=== PATIENT | male | born 1940 | race Caucasian/White ===

== ENCOUNTER 2016-06-21 16:45 | Emergency (ER) | payer MEDICARE, OTHER ==
[~2016-06-21 16:45] MED LIST: ASA5GR PO; ASAB PO; BENICAR20 PO; BENICAR5 PO; CO Q-10200 MG PO; COQ-1010 MG PO; COQ-10200 MG PO; COQ10100 MG OR; CORDARONE PO; CRESTOR10 PO; CRESTOR20 MG PO; CYANO1000T PO; ELIQUIS 5 MG TAB5 MG PO; FLEX PO; IMDUR120 PO; IMDUR30 PO; LOP25 PO; LOP50 PO; LORTAB 5 PO; LOVAZA1 GM PO; NITROSTAT0.4 MG SL; NORV5 PO; PEP20 PO; PROMEGA PO; PROTONIX PO; PROTONIX20 MG PO; ULTRAM50 PO; VITAMIN B PO; VITAMIN B-121000 MC1 SL; XARELTO20 MG PO; Z100 PO; [UNRECOGNIZED DRUG - OTHER]; [UNRECOGNIZED DRUG - OTHER]
[2016-06-21 17:25] LABS: BASOPHILS 0.2 %; BASOPHILS ABSOLUTE 0.01 10/3/uL (0.0-0.16); EOSINOPHILS ABSOLUTE 0.05 10/3/uL (0.0-0.53); ER CBC TAT 0 Hrs 05 Mins; HEMOGLOBIN 15.1 g/dL (13.6-17.8); IMMATURE GRANULOCYTES 0.2 %; IMMATURE GRANULOCYTES ABSOLUTE 0.01 10/3/uL (0.0-0.11); LYMPHOCYTES 29.6 %; LYMPHOCYTES ABSOLUTE 1.49 10/3/uL (0.67-4.30); MEAN CORPUS HGB CONC 33.7 g/dL (32.0-36.0); MEAN CORPUSCULAR HEMOGLOB 32.3 pg (26.0-34.0); MEAN CORPUSCULAR VOLUME 95.7 fL (80-100); MEAN PLATELET VOLUME 9.7 fL (9.2-13.0); MONOCYTES 7.7 %; MONOCYTES ABSOLUTE 0.39 10/3/uL (0.21-1.20); NEUTROPHILS 61.3 %; NEUTROPHILS ABSOLUTE 3.09 10/3/uL (2.02-8.40); PLATELET COUNT 115 10/3/uL (150-400); RBC DISTRIBUTION WIDTH 14.4 % (12.0-16.0); RED CELL COUNT 4.68 10/6/uL (4.7-6.1)
[2016-06-21 17:27] LABS: HEMATOCRIT 44.8 % (40.0-51.0); MANUAL DIFF NO %
[2016-06-21 17:47] LABS: A/G RATIO 0.8 (0.7-1.9); ALBUMIN 3.2 G/DL (3.5-5.0); ALKALINE PHOSPHATASE 83 U/L (45-117); CALCIUM, SERUM 7.9 MG/DL (8.5-10.4); CHLORIDE, SERUM 104 MMOL/L (96-112); CO2 (CARBON DIOXIDE) 27 MMOL/L (24-34); GLOBULIN 3.9 G/DL (2.5-4.1); POTASSIUM, SERUM 4.8 MMOL/L (3.5-5.3); SGOT(AST) 62 U/L (5-40); SGPT(ALT) 35 U/L (5-65); SODIUM, SERUM 139 MMOL/L (135-148); TOTAL BILIRUBIN 0.4 MG/DL (0-1.2); TOTAL PROTEIN 7.1 G/DL (6.0-8.5)
[2016-06-21 17:48] LABS: BUN (BLOOD UREA NITROGEN) 40 MG/DL (6-23); GFR AFRICAN AMERICAN 39 ML/MIN (>=60); GFR NON AFRICAN AMERICAN 33 ML/MIN (>=60); GLUCOSE, SERUM 171 MG/DL (60-99)
[2016-07-11] MEDS ORDERED: SUCR PO (10:56)
[2016-07-11] MEDS ORDERED: ZYRTEC ALLGY10 MG PO (10:57)
[2016-07-11] MEDS ORDERED: FLONASE NAS (10:58)
[2016-10-20] MEDS ORDERED: EZFE 200200 MG PO (20:39)
[2016-10-20] MEDS ORDERED: VITC500 PO (20:39)
[2016-10-20] MEDS ORDERED: PROTONIX PO (20:40)
[2016-10-20] MEDS ORDERED: HALF81 PO (20:40)
[2016-10-20] MEDS ORDERED: CORDARONE PO (20:41)
[2016-10-20] MEDS ORDERED: ZYRTEC ALLGY10 MG PO (20:41)
[2016-10-20] MEDS ORDERED: VITAMIN D31000 UNIT PO (20:42)
[2016-10-20] MEDS ORDERED: CRESTOR10 PO (20:42)
[2016-10-20] MEDS ORDERED: ZOFRAN4 PO (20:42)
[2016-10-20] MEDS ORDERED: L20 PO (20:42)
[2016-10-20] MEDS ORDERED: COUMADIN4 MG PO (20:43)
[2016-10-26] MEDS ORDERED: CIP5 PO (09:01)
[2016-11-19] MEDS ORDERED: CIP5 PO (16:15)
== END 2016-06-21 22:01 | disposition home or self-care (01) ==
LOC: ER 16:45
PROVIDERS: Emergency Medicine
DX: J40 Bronchitis, not specified as acute or chronic (principal); I12.9 Hypertensive chronic kidney disease with stage 1 through stage 4 chronic kidney disease, or unspecified chronic kidney disease; N18.9 Chronic kidney disease, unspecified; E11.9 Type 2 diabetes mellitus without complications; I48.91 Unspecified atrial fibrillation; Z98.61 Coronary angioplasty status; Z79.899 Other long term (current) drug therapy; Z79.82 Long term (current) use of aspirin
CPT/HCPCS: 71020; 80053; 85025; 87040; 93005; 94640; 96372; 99285; A9270; J2930

== ENCOUNTER 2016-07-27 06:57 | Inpatient (IN) | payer MEDICARE, OTHER ==
[2016-07-17 10:01] LABS: BASOPHILS 0.3 %; BASOPHILS ABSOLUTE 0.01 10/3/uL (0.0-0.16); EOSINOPHILS 6.5 %; EOSINOPHILS ABSOLUTE 0.19 10/3/uL (0.0-0.53); HEMOGLOBIN 13.4 g/dL (13.6-17.8); IMMATURE GRANULOCYTES 0.3 %; IMMATURE GRANULOCYTES ABSOLUTE 0.01 10/3/uL (0.0-0.11); LYMPHOCYTES 38.7 %; LYMPHOCYTES ABSOLUTE 1.13 10/3/uL (0.67-4.30); MANUAL DIFF NO %; MEAN CORPUS HGB CONC 34.4 g/dL (32.0-36.0); MEAN CORPUSCULAR HEMOGLOB 32.4 pg (26.0-34.0); MEAN CORPUSCULAR VOLUME 94.2 fL (80-100); MEAN PLATELET VOLUME 9.6 fL (9.2-13.0); MONOCYTES 5.8 %; MONOCYTES ABSOLUTE 0.17 10/3/uL (0.21-1.20); NEUTROPHILS 48.4 %; NEUTROPHILS ABSOLUTE 1.41 10/3/uL (2.02-8.40); PLATELET COUNT 110 10/3/uL (150-400); RBC DISTRIBUTION WIDTH 14.3 % (12.0-16.0); RED CELL COUNT 4.14 10/6/uL (4.7-6.1); WHITE BLOOD CELLS 2.9 10/3/uL (4.5-10.5)
[2016-07-17 10:06] LABS: INTERNATIONAL NORMAL RATI 1.4 UNITS (-); PROTIME (NOT ORD) 16.6 SEC (12.0-14.5)
[2016-07-17 10:11] LABS: ASCORBIC ACID (UR NOT ORDER) NEG (NEG); BILIRUBIN, URINE NEGATIVE (NEG); KETONE, URINE NEGATIVE (NEG); LEUKOCYTE ESTERASE(NOT OR NEG (NEG); WBC (NOT ORDERED) (RFLEX) < 1 (0-5)
[2016-07-17 10:26] LABS: % IRON SAT 31 % (20-50); A/G RATIO 1.2 (0.7-1.9); ALKALINE PHOSPHATASE 79 U/L (45-117); CALCIUM, SERUM 7.7 MG/DL (8.5-10.4); CHLORIDE, SERUM 109 MMOL/L (96-112); CO2 (CARBON DIOXIDE) 25 MMOL/L (24-34); GLUCOSE, SERUM 195 MG/DL (60-99); IRON BINDING CAPACITY 258 MCG/DL (250-450); IRON, SERUM 81 MCG/DL (35-150); POTASSIUM, SERUM 4.4 MMOL/L (3.5-5.3); SGOT(AST) 17 U/L (5-40); SGPT(ALT) 17 U/L (5-65); SODIUM, SERUM 143 MMOL/L (135-148); TOTAL BILIRUBIN 0.6 MG/DL (0-1.2)
[2016-07-17 10:27] LABS: BUN (BLOOD UREA NITROGEN) 20 MG/DL (6-23); GFR AFRICAN AMERICAN 61 ML/MIN (>=60); GFR NON AFRICAN AMERICAN 53 ML/MIN (>=60); GLOBULIN 2.6 G/DL (2.5-4.1); TOTAL PROTEIN 5.6 G/DL (6.0-8.5)
--- NOTE | ~2016-07-27 | CN ---
Consultation Report [place] [id number] [facility] [place]. [address] NAME: GUADALUPE GARCIA : 36 STATUS : ADM IN [facility]#: [id number] AGE: 75 ADM/REG DATE : 07/27/16 MR#: [id number] REPORT SERV DATE: 08/03/16 DICTATED BY: PETERSON MAJANO DATE: 08/03/16 REPORT STATUS : Draft TRANSCRIBED BY: MODL DATE: 08/03/16 ELECTROPHYSIOLOGY CONSULTATION DATE OF CONSULTATION: INDICATIONS: Sinus node dysfunction, episodes of ventricular asystole, sinus bradycardia, sinus pauses. HISTORY OF PRESENT ILLNESS: Guadalupe Garcia is a 75-year-old man, history of coronary artery disease, previous bypass grafting, previous PCI with persistent atrial fibrillation and aortic valve disease. He underwent CAB, AVR, and maze. Last weekend, he had episodes of ventricular asystole. Eventually, sinus rhythm returned and pacing wires were removed. The patient then last night had multiple episodes of bradycardia, sinus pauses, and then pauses during atrial fibrillation. He had some weak spells during this episode that occurred around midnight. Other episodes occurred around 04:00 a.m. The patient otherwise without focal complaints at the present time. PAST MEDICAL HISTORY: Coronary artery disease, aortic regurgitation, persistent atrial fibrillation, atrial flutter, nonsustained VT, ischemic cardiomyopathy, chronic kidney disease, ABHAY, hypertension, obesity. PRESENT MEDICATIONS: Vitamin C, aspirin, Lipitor, Coreg, iron, Lasix, Levemir. ALLERGIES: NONE KNOWN. SOCIAL HISTORY: No alcohol, never smoker. FAMILY HISTORY: Reviewed. No significant coronary artery disease in family. REVIEW OF SYSTEMS: As per the HPI. Otherwise, all review of systems negative. PHYSICAL EXAMINATION: VITAL SIGNS: Blood pressure 130/59, pulse is 58, respiratory rate is 18. GENERAL: Appears stated age, no distress. EYES: Sclerae anicteric, no arcus senilis. MOUTH: Oral mucosa moist, lips acyanotic. NECK: Jugular venous pressure normal, no carotid bruits. LUNGS: Clear to auscultation bilaterally, normal inspiratory effort. Diminished breath sounds bilateral bases. CARDIAC: Regular rate and irregular rhythm, no murmurs, gallops or rubs. ABDOMEN: Soft, nondistended, nontender. EXTREMITIES: No edema. Consultation Report [place] [id number] [facility] [place]. [address] NAME: GUADALUPE GARCIA : 38 STATUS : ADM IN PAT#: [id number] AGE: 75 ADM/REG DATE : 07/27/16 MR#: [id number] REPORT SERV DATE: 08/03/16 DICTATED BY: PETERSON MAJANO DATE: 08/03/16 REPORT STATUS : Draft TRANSCRIBED BY: MODL DATE: 08/03/16 SKIN: Warm and dry. NEURO/PSYCH: Alert and oriented, nonfocal, mood appropriate. DATA: Laboratories from yesterday, platelets are 81, hemoglobin 7.1, creatinine 1.36, potassium 3.9. Telemetry is atrial fibrillation with pauses up to 4 seconds, telemetry strips demonstrate significant sinus bradycardia with heart rates down to the 40s, other strips demonstrate episodes of asystole from last weekend when the pacer was inhibited. IMPRESSION: 1. Sick sinus syndrome with sinus pauses last night, sinus bradycardia as well, and previous week in asystole. 2. Coronary artery disease, previous bypass grafting this admission. 3. Status post AVR. 4. Chronic kidney disease with acute kidney injury. 5. Anemia. 6. Thrombocytopenia. 7. Atrial fibrillation, status post maze. RECOMMENDATIONS: We will plan to proceed with implantation of a dual-chamber pacemaker. The patient did eat at 0830 hours this morning. We will await the requisite 8 hours and proceed. I discussed with the patient and , rationale logistics and risk. Risks include but not limited to bleeding, infection, vascular complications, failure to place lead, lead dislodgement, pneumothorax. All questions were answered. MISTY/ANNA Peterson Majano M.D. / [id number] CC: Javier Yang M.D. Mateus Prieto M.D.
--- NOTE | ~2016-07-27 | CN ---
Consultation Report [facility] [address] [place]. [address] NAME: GUADALUPE GARCIA : 36 STATUS : ADM IN PAT#: [id number] AGE: 75 ADM/REG DATE : 07/27/16 MR#: [id number] REPORT SERV DATE: 07/30/16 DICTATED BY: SHAHZAD OLIVIER DATE: 07/28/16 REPORT STATUS : Draft TRANSCRIBED BY: MODL DATE: 07/28/16 NEPHROLOGY CONSULT DATE OF CONSULTATION: 07/28/2016 REASON FOR CONSULT: Chronic kidney disease with acute kidney injury. HISTORY OF PRESENT ILLNESS: Mr. Garcia is a very pleasant 75-year-old white male, who has chronic kidney disease, followed in the office of [facility] by Dr. Gandhi. His baseline creatinine is approximately 1.3 to 1.4. Creatinine was 1.3 at the time of his last office visit on 06/13/2016. He underwent cardiac catheterization on 06/15/2016 at which time creatinine was 1.4. On preop testing, 07/17/2016 creatinine was 1.3. He is now postop day 1 CABG x5 with aortic valve replacement and maze. His creatinine yesterday afternoon postop was 1.37. He is extubated today. He is on Dobutrex 1 mcg and Levophed at 2 mcg. He is receiving his third and fourth unit of packed red blood cells today and did require FFP and platelets yesterday for significant bleeding postoperatively. He had a profound hypotension with systolic blood pressures in the 80s immediately postop. Over the last 24 hours, he has had 7570 mL of intake with only 1186 mL of urine output. Chest x-ray shows no active process and his CVP is 7 to 10. PAST MEDICAL HISTORY: 1. Chronic kidney disease, baseline creatinine 1.3 to 1.4. 2. Atherosclerotic cardiovascular disease, postop day #1 CABG x5 with AVR. 3. Atrial flutter postop day #1, maze. 4. Hypertension, on ARB. 5. Hyperlipidemia. 6. Obstructive sleep apnea. 7. Echo EF 45% to 50%, May 2016. 8. Osteoarthritis with previous knee and hip replacements. Avoiding NSAIDs. CURRENT MEDICATIONS: Amiodarone 400 mg b.i.d., vitamin C 1000 mg b.i.d., aspirin, Lipitor, Pepcid, Lopressor, nitro paste, and zinc. He is on Dobutrex and Levophed infusions. FAMILY HISTORY: No ESRD. 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 REVIEW OF SYSTEMS: Significant for events as per HPI. PHYSICAL EXAMINATION: VITAL SIGNS: Temperature 97, pulse 80, respirations 16, blood pressure 118/53, 98% saturation on 2 L per nasal cannula. Consultation Report [address] [place]. [address] NAME: GUADALUPE GARCIA : 36 STATUS : ADM IN [facility]#: [id number] AGE: 75 ADM/REG DATE : 07/27/16 MR#: [id number] REPORT SERV DATE: 07/30/16 DICTATED BY: SHAHZAD OLIVIER DATE: 07/28/16 REPORT STATUS : Draft TRANSCRIBED BY: ANNA DATE: 07/28/16 GENERAL: He is a very pleasant white male, awake, alert, oriented, and cooperative with the exam. NEURO: Grossly nonfocal. He is in no distress. Conversant without distress. HEENT: Sclerae without icterus. Conjunctivae not injected. Oropharynx is clear. JVD 8 to 10 cm. He has bilateral rhonchi. No tachypnea. Paced externally. Incision is clean. Bandages are dried and intact. He has chest tubes in place. ABDOMEN: Soft, nontender, nondistended. Bowel sounds present throughout without rebound, guarding, or peritoneal signs. EXTREMITIES: Show 1+ edema. SKIN: Shows no rash or livedo reticularis. Clear yellow urine is noted in the Chirinos catheter. CVP is 7 to 10. MUSCULOSKELETAL: Shows no active tenosynovitis or gout. Mood and affect are appropriate. LABORATORY DATA: Sodium 147, potassium is 4, bicarb 25, BUN 26, creatinine 1.9. GFR 33 mL/minute. Calcium 8.1, magnesium 2.3. White count 12.9 thousand, hemoglobin 7.2, platelets 94,000, hematocrit 20.6%. INR 1.7. A1c 7.7%. Urinalysis on 07/17/2016 showed no blood or protein. ASSESSMENT AND PLAN: Mr. Garcia has chronic kidney disease, baseline creatinine 1.3 to 1.4. Followed in the office of [facility]. Has developed acute kidney injury which is nonoliguric postop day #1 coronary artery bypass graft x5 with aortic valve replacement and maze in the setting of postoperative acute blood loss anemia requiring transfusions, thrombocytopenia, and coagulopathy. His other medical history is as outlined above. More than likely, he developed acute kidney injury related to acute tubular necrosis from renal hypoperfusion due to acute blood loss anemia requiring transfusion. Blood pressure is stable this morning on low-dose pressors. He is receiving his third and fourth units of packed red blood cells today. Angiotensin receptor lupis is appropriately on hold. He is 5 L net fluid positive over the last 24 hours. We will dose albumin and Bumex to diurese. Renal function has improved from this morning and hopefully creatinine has peaked. Hopefully, dialysis can be avoided. We will follow closely with you. Continue supportive care. Watch labs closely. Avoid nephrotoxic medications. [place]/MODL Shahzad Olivier M.D. / [id number] CC: Javier Yang M.D. [facility]
--- NOTE | ~2016-07-27 | CN ---
Consultation Report [facility] [address] [place]. [address] NAME: GUADALUPE GARCIA : 36 STATUS : ADM IN [facility]#: [id number] AGE: 75 ADM/REG DATE : 07/27/16 MR#: [id number] REPORT SERV DATE: 07/31/16 DICTATED BY: DATE: REPORT STATUS : Draft TRANSCRIBED BY: MODL DATE: 07/31/16 NEUROLOGY CONSULTATION DATE OF CONSULTATION: 07/31/2016 REASON FOR CONSULT: Left hemiparesis. HISTORY OF PRESENT ILLNESS: This is a 75-year-old male who presented to [facility] on 07/27/2016, for cardiac catheterization. The patient was noted to have subsequent coronary artery surgery with the patient after surgery was noted to have significant hypotension with the patient's blood pressure mostly in the 80s. The patient was subsequently provided with pack red blood transfusion as well as fluids resuscitation with improvement of the patient's blood pressure. The patient, in addition, also suffered acute on chronic kidney injury with improvement of creatinine. The patient, however, does also have thrombocytopenia that is improving but not quite resolved. The patient overnight, after transfer out of the ICU, was noted to have difficulty transferring from wheelchair to bed with the patient noted to have some left-sided weakness especially in the left lower extremity. He otherwise denies any numbness and denies any dysarthria, dysphagia, language difficulties, diplopia, or other complaints. The patient denies similar symptoms in the past before prior to hospitalization. No recent fever, chills, nausea, vomiting, or recent illness was noted. PAST MEDICAL HISTORY: The patient's past medical history is significant for chronic kidney disease with baseline creatinine 1.3 to 1.4, recent acute on chronic kidney injury with improving creatinine. The patient was noted to have arthrosclerotic coronary artery disease, status post 5 vessel coronary artery bypass surgery as well as aortic valve replacement, history of atrial flutter after surgery with the patient currently still having pacer wire in place, history of hypertension as well as hyperlipidemia and osteoarthritis with previous hip replacement. The patient recently was also noted to be hypotensive with recent thrombocytopenia. CURRENT MEDICATIONS: Consist of aspirin, Lipitor as well as vitamin C, Bumex, iron sulfate, NovoLog, Senokot, and Levemir. FAMILY HISTORY: No significant family history of renal disease or stroke was reported. SOCIAL HISTORY: Denies tobacco, alcohol, or recreational drug usage. REVIEW OF SYSTEMS: At the time of evaluation, review of systems negative except for those mentioned in the HPI. PHYSICAL EXAMINATION: VITAL SIGNS: At the time of evaluation, the patient was noted to have vital signs with T- max of 99.8, heart rate of 57 to 62, respirations of 12 to 23, and blood pressure of 98 to 179 over 54 to 88. GENERAL: The patient is well developed, well nourished, in no acute Consultation Report [address] [place]. [address] NAME: GUADALUPE GARCIA : 38 STATUS : ADM IN [facility]#: [id number] AGE: 75 ADM/REG DATE : 07/27/16 MR#: [id number] REPORT SERV DATE: 07/31/16 DICTATED BY: DATE: REPORT STATUS : Draft TRANSCRIBED BY: MODEstefania DATE: 07/31/16 distress. CARDIOVASCULAR: Regular rate and rhythm. No carotid bruits were otherwise auscultated. PULMONARY: Examination was clear to auscultation bilaterally. NEUROLOGICAL: Generally, the patient is alert oriented to person, place, but not to month. Follows simple and 2-step commands at the time of evaluation. No dysarthria or aphasia was noted. Intact registration. Mild difficulties with recall. Cranial nerves 2 through 12, pupils equal, round, and reactive to light. Extraocular eye movement was noted to be intact at the time of evaluation. No clear peripheral visual deficit was otherwise noted. Decreased nasolabial fold on the right with mild facial asymmetry. Tongue was mildly deviated to the left with normal palatal movement. Reports symmetrical facial sensation. Minimally decreased hearing bilaterally. The patient was noted to have 5/5 right upper extremity strength and 5- out of 5 left upper extremity strength with mild pronator drift in the left upper extremity, otherwise, 4/5 right lower extremity strength and 4- out of 5 left lower extremity strength. Reports symmetrical sensation in bilateral upper and lower extremity. The patient was noted to have trace deep tendon reflex in bilateral upper and lower extremity. Gait was not evaluated secondary to urinary catheter, chest tube as well as weakness. Normal [id number] examination without clear ataxia. LABORATORY STUDIES: Demonstrated white blood cell count of 8.2, hemoglobin of 7.5, hematocrit of 22.0, and platelet count of 63. Chemistry panel: Sodium of 138, potassium 4.2, chloride of 101, bicarb 29, BUN of 55, creatinine 1.76, glucose of 97, calcium of 7.9, and magnesium 1.9. CT scan of the brain was reviewed, no clear abnormality was seen. IMPRESSION: Left hemiparesis, time of onset is unclear. NIH stroke scale at the time of evaluation was 5. The patient, on examination, was noted to have decreased nasolabial fold on the right as well as bilateral lower extremity weakness, left worse than the right with left upper extremity pronator drift as well as mild tongue deviation to the left. The patient was noted to have significant hypotension after surgery with atrial flutter, both concerning for etiology, for stroke, concern for possible embolic stroke given multifocal findings on examination. The patient currently does still have pacer wire in place for heart rate monitoring and intervention. We are recommending MRI of the brain without contrast after pacer wire removal. Meanwhile we will obtain PT/OT to evaluate and treat. We will obtain fasting lipid panel with morning labs. The patient did have a recent echocardiogram which demonstrated mildly decreased EF of 45 to 50% but otherwise no apical thrombus. The patient, in addition, was also noted to have recent carotid Doppler study which demonstrated no significant carotid disease. We will not repeat those studies. The patient also has had a recent hemoglobin A1c of 7.7 on 07/17/2016, we will also not repeat. We will increase atorvastatin to 80 mg p.o. at bedtime. We will continue aspirin for now. RECOMMENDATION: 1. Increase atorvastatin to 80 mg p.o. at bedtime. 2. PT/OT. 3. Fasting lipid panel with morning labs. 4. Recent echo, carotid Doppler study as well as hemoglobin A1c; as a result, we will not repeat those studies. Consultation Report [facility] [address] [place]. [address] NAME: GUADALUPE GARCIA : 36 STATUS : ADM IN [facility]#: [id number] AGE: 75 ADM/REG DATE : 07/27/16 MR#: [id number] REPORT SERV DATE: 07/31/16 DICTATED BY: DATE: REPORT STATUS : Draft TRANSCRIBED BY: MODL DATE: 07/31/16 5. Continue aspirin for now. 6. MRI of the brain without contrast after pacer wire removal. [facility]/MODL Parrish López MD / [id number] CC: Geovanna Luo M.D.
--- NOTE | ~2016-07-27 | OP ---
Record Of Operation [address] [place]. [address] NAME: GUADALUPE GARCIA : 38 STATUS : ADM IN PAT#: [id number] AGE: 75 ADM/REG DATE : 07/27/16 MR#: [id number] REPORT SERV DATE: 08/01/16 DICTATED BY: CRISTINA YANG DATE: 07/31/16 REPORT STATUS : Draft TRANSCRIBED BY: MODL DATE: 07/31/16 DATE OF PROCEDURE: 07/27/2016 PREOPERATIVE DIAGNOSES: 1. Coronary artery disease. 2. Aortic valve insufficiency. 3. Paroxysmal atrial fibrillation. 4. Ascending aortic dilatation. 5. Chronic kidney disease, stage III. 6. Hypertension. 7. Hyperlipidemia. 8. Obesity. POSTOPERATIVE DIAGNOSES: 1. Coronary artery disease. 2. Aortic valve insufficiency. 3. Paroxysmal atrial fibrillation. 4. Ascending aortic dilatation. 5. Chronic kidney disease, stage III. 6. Hypertension. 7. Hyperlipidemia. 8. Obesity. PROCEDURE PERFORMED: 1. Aortic valve replacement using a 29 mm pericardial valve (Magna Ease). 2. Coronary artery bypass grafting x5, left internal mammary artery placed to left anterior descending, reverse saphenous vein graft placed to the second diagonal, reverse saphenous vein graft placed to the first obtuse marginal, reverse saphenous vein graft placed to the posterior descending artery, and reverse saphenous vein graft placed to the posterolateral branch vessel. 3. Endoscopic vein harvest, saphenous vein from right and left lower leg. 4. De León-Maze IV procedure on cardiopulmonary bypass using radiofrequency ablation and cryoablation. 5. Transesophageal echocardiography. SURGEON: Cristina Yang M.D. ASSISTANTS: Donis Cooney, Jet Maldonado, and Tomsa Watson. ANESTHESIA: General with Dr. Loza. OWNER PROFESSIONAL ENGINEER: Dr. Sher Palomino. PRIMARY CARE: Dr. Mateus Prieto. INDICATIONS: This is a 75-year-old gentleman with known coronary disease and previous Record Of Operation [address] [place]. [address] NAME: GUADALUPE GARCIA : 38 STATUS : ADM IN PAT#: [id number] AGE: 75 ADM/REG DATE : 07/27/16 MR#: [id number] REPORT SERV DATE: 08/01/16 DICTATED BY: CRISTINA YANG DATE: 07/31/16 REPORT STATUS : Draft TRANSCRIBED BY: MODL DATE: 07/31/16 myocardial infarction and previous stenting of right coronary artery. He also has a history of paroxysmal atrial fibrillation and underwent previous catheter-based ablation with recent recurrence of atrial fibrillation. The patient was seen recently by Dr. Palomino and he had a stress test that was abnormal. Cardiac catheterization demonstrated significant three- vessel coronary disease with occlusion of the right coronary artery. Echocardiography demonstrated mildly diminished ejection fraction 45% to 50% with mild to moderate aortic valve insufficiency and mild aortic dilatation. We were asked to see the patient for possible coronary artery bypass grafting with consideration for aortic valve replacement and maze procedure. We discussed these procedures with the patient and his family in our office. After lengthy discussion of operation, indications, and risks, they wished to proceed. I felt that most likely his aortic valve should be replaced. The ascending aorta on CT of the chest demonstrated mildly enlarged aortic root of 4.1 cm and ascending aorta 4.1 cm. I did not feel this demanded resection or replacement. After discussion of the operations, indication, risks, they wished to proceed. FINDINGS AT OPERATION: 1. Cross-clamp time of 133, total pump time 172 minutes. 2. The LAD was a 2 mm mildly diseased vessel. A 3 mm VALDOVINOS was anastomosed to it with good runoff. 3. The second diagonal was 1.5 mm moderately diseased. A 4 mm RSVG was anastomosed to it with good runoff. 4. The first obtuse marginal was 2 mm moderately diseased. A 5 mm RSVG was anastomosed to it with good runoff. 5. The posterior descending artery was 2 mm and moderately diseased. A 4.5 mm RSVG was anastomosed to it with good runoff. 6. The posterolateral branch vessel was 1.5 mm mildly diseased. A 4 mm RSVG was anastomosed to it with good runoff. Unfortunately, this vein graft was not long enough to reach the ascending aorta. Therefore, it was piggybacked into the side of vein graft going to the PDA. 7. The vein quality from the thighs was too large to use. Therefore, we harvested the vein from both lower extremities. Quality from the lower legs was good and all grafts had good Doppler signal at the end of the case. 8. The aortic valve had 3 leaflets with normal coronary anatomy. There was mild sinusoidal dilatation, but no aneurysm was noted. Ascending aorta was measured at 4.2 cm [id number]. 9. The aortic valve was replaced using a 29 mm pericardial valve (Magna Ease). Eighteen Cor-Knots were used to secure the valve in place. 10.We performed a De León-Maze IV procedure on a cardiopulmonary bypass using the radiofrequency ablation and cryoablation catheters of AtriCure. Please review the De León- Maze IV lesion set check list for specific lesions in the operative note. 11.We did ligate and amputate the left atrial appendage. 12.ASHILE at the end of the operation demonstrated good ventricular function with mild mitral insufficiency. The aortic prosthesis was well seated without perivalvular leak. PATHOLOGIC SPECIMENS: Aortic valve leaflets and left atrial appendage. DESCRIPTION OF PROCEDURE: The patient was brought to the operating suite, general anesthesia Record Of [address] [address] NAME: GUADALUPE GARCIA : 38 STATUS : ADM IN [facility]#: [id number] AGE: 75 ADM/REG DATE : 07/27/16 MR#: [id number] REPORT SERV DATE: 08/01/16 DICTATED BY: CRISTINA YANG DATE: 07/31/16 REPORT STATUS : Draft TRANSCRIBED BY: MODL DATE: 07/31/16 was induced, airway secured with an endotracheal tube. Lines secured by Anesthesia and Chirinos catheter was placed. The patient's chest, abdomen, groin, and legs were prepped with Hibiclens and ChloraPrep and draped with Ioban sterile sheets. ASHLIE probe was placed and examination carried out by Dr. Loza in my attendance. There was I felt, at least, moderate aortic insufficiency. There was very mild mitral insufficiency. Plans were made for aortic valve replacement. The saphenous vein was harvested from bilateral lower extremities below the knees using endoscopic vein harvest technique. The saphenous vein was cutdown through 1 to 2 cm incision placed both knees and then using the VasoView trocars, the vessel was dissected from the surrounding subcutaneous tissue and fat distally in the legs bilaterally. Once at the ankle level, the counter incisions were made. Once the side branches were clipped and divided, the vessels were ligated and divided distally and brought through the knee incision. The vein quality from both legs was good and the leg was made hemostatic, closed in layers with absorbable suture and skin closed in subcuticular fashion. Then, a midline sternal incision was made and the sternum was opened with a saw. The left hemithorax was elevated and the endothoracic fascia was incised. Side branch of the CLAIRE were clipped and divided. Once the CLAIRE was completely dissected, the patient was anticoagulated with heparin and chest tube placed in the left pleural cavity. The CLAIRE was clipped and divided distally. There was good flow through the CLAIRE and its pedicle was infiltrated with papaverine. Next, the Bradley retractor was placed in the pericardium over from the innominate vein and diaphragm, where it was T'd and tacked to the side of the chest wall. Cannulation pursestring sutures were placed. The ascending aorta was cannulated first. The ascending aorta was measured midway up the ascending aorta and at its largest diameter measured 4.2 cm from [id number]. I did not feel that this needed to be replaced. Following arterial cannulation, the maze procedure was begun on the right side. AtriCure bipolar clamp was used to create the right atrial appendage lesion and the right lateral atrial wall lesion. Venous cannula was placed in the right atrial appendage pursestring and secured. When all was in readiness, the patient was placed on cardiopulmonary bypass. We continued with the right-sided maze lesion set. Transverse right atrial lesion was then performed along with superior and inferior vena cava lesions set. Finally, using the cryoprobe, tricuspid annular lesion was performed at 2 o'clock and then a coronary sinus lesion performed using the cryoablation probe. Once this was completed, we turned our attention toward the left-sided maze lesion set. Circumferential dissection around the confluence of the pulmonary veins was carried out and then testing for entry and exit block was carried out. We then used the AtriCure bipolar clamp to perform right and left pulmonary vein isolation. The lesion was placed at the base of the left atrial appendage and a connecting lesion between the left PVI and atrial appendage was performed using AtriCure bipolar pen. Confirmatory block signals at the pulmonary veins was performed using AtriCure pen. Next, Record Of Operation [facility] [address] [place]. [address] NAME: GUADALUPE GARCIA : 38 STATUS : ADM IN PAT#: [id number] AGE: 75 ADM/REG DATE : 07/27/16 MR#: [id number] REPORT SERV DATE: 08/01/16 DICTATED BY: CRISTINA YANG DATE: 07/31/16 REPORT STATUS : Draft TRANSCRIBED BY: ANNA DATE: 07/31/16 the aorta was crossclamped. Initial dose of cold blood cardioplegia solution was given in a combination of antegrade and retrograde fashion, then in a retrograde manner following proximal anastomosis. A retrograde cardioplegia cannula was placed in the coronary sinus and secured and used for retrograde administration. Following the first dose of cardioplegia, we continued with the left-sided portion the maze procedure. The interatrial groove of [place] was dissected. A left atriotomy was made and using AtriCure bipolar clamp, the superior and inferior dome lesions were performed. In addition, the lesion going down to the area of P2 to P3 at the mitral anulus was performed using combination of AtriCure bipolar clamp and the cryoablation probe. Once this was completed, an LV vent was placed through the right superior pulmonary vein and directed in the left ventricle through the mitral valve. The left atriotomy was closed in a two-layer fashion with running pledgeted suture of 4-0 Prolene. The heart was gently retracted towards the surgeon. The left atrial appendage was grasped. It was ligated and amputated at its base using thoracoscopic stapler and a 60 mm purple staple load. Following the maze procedure, a heart support was placed. Another dose of cardioplegia was given and we began with the bypass grafts. The heart was positioned for the obtuse marginal graft. Arteriotomy was made. The vein graft trimmed and anastomosed to it with 7-0 Prolene. The vein graft was measured to the left side of the ascending aorta where it divided. We then positioned the heart for the PDA graft. Arteriotomy was made. The vein graft trimmed and anastomosed to it with 7-0 Prolene. This vein graft was measured back to the right side of the ascending aorta where it was divided. We then positioned the heart for the diagonal graft. Another arteriotomy was made and the vein graft trimmed and anastomosed to it with 7-0 Prolene. The vein graft was then measured back to the ascending aorta where it was divided. Another dose of cardioplegia was given and we positioned the heart for the LAD graft. Arteriotomy was made and the CLAIRE was brought out of the left chest through a notch in the pericardium over the pulmonary artery. The CLAIRE was opened and anastomosed to the LAD with running suture of 8-0 Prolene. We then positioned the heart for the posterolateral branch graft. Arteriotomy was made and the vein graft trimmed and anastomosed to it with 7- 0 Prolene. This vein graft was not long enough to reach the ascending aorta. Therefore, it was divided and anastomosed to the side of the vein graft going to the PDA. A small venotomy was made and venovenous anastomosis was constructed with 7-0 Prolene. Another dose of cardioplegia was given after the bypass graft and the heart support was removed. We then turned our attention towards the aortic valve. A hockey-stick type aortotomy incision was made. The aortic valve was inspected and as described in the findings, it had three leaflets with normal coronary anatomy. There was mild sinus of Valsalva dilatation, but no aneurysm was noted. The valve was sized and a 29 mm pericardial valve was selected. We then excised the aortic leaflets of the valve and the annulus was debrided of any calcific material. We then used ice saline to irrigate the ascending aorta and left ventricle copiously to remove any particulate matter. Then interrupted pledgeted sutures of 2-0 Tycron placed circumferentially about the aortic valve annulus with the pledgets on the ventricular side. These were horizontal mattress sutures. These sutures were then passed through the sewing cuff of the prosthetic valve. Record Of Operation [address] [place]. [address] NAME: GUADALUPE GARCIA : 38 STATUS : ADM IN [facility]#: [id number] AGE: 75 ADM/REG DATE : 07/27/16 MR#: [id number] REPORT SERV DATE: 08/01/16 DICTATED BY: CRISTINA YANG DATE: 07/31/16 REPORT STATUS : Draft TRANSCRIBED BY: MODL DATE: 07/31/16 This was lowered into position, each of the sutures individually secured and divided using a Cor-Knot device. The valve appeared to be well seated. Both right and left main coronary were without obstruction. Warming was begun. The aortotomy was closed in a two-layer fashion with running pledgeted suture of 5-0 Prolene. Then, the patient was placed in Trendelenburg. Next, the proximal anastomosis region of the vein graft was performed. Briefly three 4.5 mm punch aortotomy was made and the proximal ends of each of the vein grafts were anastomosed to these sites with running sutures of 6-0 Prolene. A final dose of warm blood cardioplegia was given in a retrograde fashion. Ventricular and atrial pacing wires were placed. Following the last dose of cardioplegia and de-airing of the aorta, the aortic cross clamp was removed. The distal and proximal anastomoses suture lines were inspected and made hemostatic. Doppler demonstrated good flow through the grafts. The heart was paced in AV sequential fashion at a rate of 80 and ventilation was begun. The heart was allowed to rest on cardiopulmonary bypass for several minutes. When it demonstrated good contractility, it was allowed to fill and eject. De-airing was monitored with ASHLIE. When de-airing was completed, the LV vent was removed and each pursestring sutures tied. The ascending aortic vent was likewise removed and each pursestring sutures tied and reinforced. The patient was then weaned from cardiopulmonary bypass with inotropic support. The venous cannula was removed and each pursestring sutures tied. ASHLIE examination demonstrated good ventricular function. The aortic valve prosthesis was well seated. There was mild mitral insufficiency. Protamine was administered by Anesthesia and following a period of hemodynamic stability, the aortic cannula was removed and each pursestring sutures tied and reinforced. The patient continued do well and chest irrigated copiously with saline. Meticulous hemostasis was obtained. Hemasorb was placed along the cut edge of the sternum. Once hemostasis was assured, the pericardium was draped over the anterior surface of the heart and tacked into position. Doppler demonstrated good flow through the grafts following protamine administration. Then, chest tubes were placed and the sternum reapproximated with 8 sternal wires. The clavipectoral fascia and linea alba were closed with #1 Stratafix. The skin and subcutaneous tissue was closed with Stratafix and skin closed in subcuticular fashion. The patient tolerated the procedure well. There were no complications. Sponge and needle counts were correct. DISPOSITION: The patient left intubated, sedated, and transported to the Intensive Care Unit in a stable condition. Record Of Operation [facility] [address] [place]. [address] NAME: GUADALUPE GARCIA: 38 STATUS : ADM IN PAT#: [id number] AGE: 75 ADM/REG DATE : 07/27/16 MR#: [id number] REPORT SERV DATE: 08/01/16 DICTATED BY: CRISTINA YANG DATE: 07/31/16 REPORT STATUS : Draft TRANSCRIBED BY: ANNA DATE: 07/31/16 AP/ANNA Cristina Yang M.D. / [id number] CC: Geovanna Fernández Jr., M.D.
--- NOTE | ~2016-07-27 | DS ---
Discharge Summary [place] [id number] [facility] [place]. [address] NAME: GUADALUPE GARCIA : 36 STATUS : DIS IN PAT#: [id number] AGE: 75 ADM/REG DATE : 07/27/16 MR#: [id number] REPORT SERV DATE: 08/17/16 DICTATED BY: CRISTINA YANG DATE: 08/16/16 REPORT STATUS : Draft TRANSCRIBED BY: MODEstefania DATE: 08/16/16 Data Collection from hospitalization DISCHARGE DIAGNOSES: 1. Coronary artery disease, status post coronary artery grafting. 2. Aortic insufficiency, status post aortic valve replacement. 3. Acute cerebrovascular accident. 4. Hypertension. 5. Hyperlipidemia. 6. Acute kidney injury/chronic kidney disease. 7. Anemia. 8. Thrombocytopenia. 9. Persistent atrial fibrillation. 10.Obesity. 11.Obstructive sleep apnea. 12.Ischemic cardiomyopathy. CONSULTATIONS: 1. Yoandy Lerner M.D. 2. Parrish López MD. 3. Peterson Majano M.D. 4. Jayesh Sabillon MD. 5. Zohaib Eastman NP. PROCEDURES PERFORMED: 1. Aortic valve replacement using a 29 mm pericardial valve (Magna Ease), coronary artery bypass grafting x5 with VALDOVINOS to the LAD, reverse saphenous vein graft placed to the second diagonal, reverse saphenous vein graft placed to the first obtuse marginal, reverse saphenous vein graft placed to the posterior descending artery, and reverse saphenous vein graft placed to the posterolateral branch vessel. Endoscopic vein harvest of the saphenous vein from the right and left lower leg. De León-Maze IV procedure on cardiopulmonary bypass using radiofrequency ablation and cryoablation. Transesophageal echocardiography on 07/27/2016. 2. CT scan of the brain without contrast, 07/31/2016. 3. MRI of the brain without contrast, 08/01/2016. 4. Pacemaker implantation, 08/03/2016. PATHOLOGY: Aortic valve leaflet - benign valvular tissue with basophilic myxoid change and hyalinization, inflammatory vegetations not present, left atrial appendage - benign atrial wall without ischemic change, myocardium with microscopic foci of fibrosis. No acute ischemic change. DISCHARGE MEDICATIONS: Aspirin 81 mg daily, Lipitor 80 mg at bedtime, ferrous sulfate 300 mg twice a day, Lasix 20 mg at 9 a.m., NovoLog injection insulin as instructed, Levemir 12 units at bedtime, Nitrostat 0.4 mg sublingually as needed, Protonix 40 mg daily, Zyloprim 400 mg daily, CoQ10 200 mg daily, Lovaza 2 g twice a day, vitamin B12 of 1000 mcg daily, Carafate 1 g before meals at bedtime, Zyrtec 10 mg at bedtime, and Flonase 1 spray nasally daily. Discharge Summary [address] [address] NAME: GUADALUPE GARCIA : 36 STATUS : DIS IN PAT#: [id number] AGE: 75 ADM/REG DATE : 07/27/16 MR#: [id number] REPORT SERV DATE: 08/17/16 DICTATED BY: CRISTINA YANG DATE: 08/16/16 REPORT STATUS : Draft TRANSCRIBED BY: ANNA DATE: 08/16/16 CONDITION AT DISCHARGE: Stable. DISPOSITION: The patient was discharged to [facility] on an 1800-calorie diabetic diet with activities as instructed. He would follow up at cardiac rehab on 08/28/2016, and in the [facility] on 08/17/2016. He will follow up with Dr. Cool on 08/21/2016. HOSPITAL COURSE: This is a 75-year-old man who has known coronary disease and previous myocardial infarction and previous stenting of the right coronary artery. He also has a history of paroxysmal atrial fibrillation and had undergone previous catheter-based ablation was recent recurrence of atrial fibrillation. The patient was recently seen by Dr. Cool and had a stress test that was abnormal. Cardiac catheterization demonstrated significant three-vessel coronary disease with occlusion of the right coronary artery. Echocardiography demonstrated mildly diminished ejection fraction of 45-50% with [id number] aortic valve insufficiency and mild aortic dilatation. It was felt that the patient would need to undergo aortic valve replacement and coronary artery bypass grafting. He was admitted to the hospital at this time for further evaluation and treatment. Upon admission, he was taken to the operating room where he underwent the above-mentioned procedure. He tolerated this well, and there were no complications. Postoperatively, he was seen by Dr. Jayesh Sabillon. The patient was stable on pressors at this time. He was in no acute distress. He was still sedated. On postop day #1, he was seen by Dr. Yoandy Lerner regarding chronic kidney disease with acute kidney injury. Preop testing revealed creatinine of 1.3. Postoperatively, his creatinine was 1.37. He has been extubated. He was on Dobutrex and Levophed. White count was 12.9 thousand. Creatinine level was 1.9. INR level was 1.7. Hemoglobin A1c was 7.7%. The patient had developed acute kidney injury which was nonoliguric on postop day 1. This was in the setting of postop acute blood loss anemia requiring transfusion, thrombocytopenia, and coagulopathy. It was felt that more than likely he developed acute kidney injury related to acute tubular necrosis from renal hypoperfusion due to acute blood loss anemia requiring transfusion. Blood pressure was stable that morning on low-dose pressors. He was receiving his third and fourth units of packed red blood cells. Angiotensin receptor lupis was appropriately on hold. We would dose albumin and Bumex to diurese. Renal function had improved from that morning and hopefully creatinine had peaked. We were hopeful that dialysis could be avoided. We would avoid nephrotoxic medication. He did feel fatigued. He was able to eat. On the , he denied shortness of breath. Chest x-ray revealed moderate pulmonary edema. Aspirin and atorvastatin were continued. Metoprolol was held. The patient was seen by Zohaib Eastman. He had been asked to see the patient regarding diabetes management. Levemir, NovoLog, and sliding scale insulin were continued. IV insulin was stopped. Creatinine level was 2.06. Blood pressure was stable. He had some delirium. There is a question of early dementia. A dose of Seroquel was going to be given. On 07/30/2016, he had a few fine crackles in his right lung base. Lopressor, amiodarone, and Valium were stopped. Pacing wires were in place. His left-sided chest tube was discontinued. Iron was started. He said he slept well the previous evening. His mental Discharge Summary [address] [place]. [address] NAME: GUADALUPE GARCIA : 36 STATUS : DIS IN PAT#: [id number] AGE: 75 ADM/REG DATE : 07/27/16 MR#: [id number] REPORT SERV DATE: 08/17/16 DICTATED BY: CRISTINA YANG DATE: 08/16/16 REPORT STATUS : Draft TRANSCRIBED BY: ANNA DATE: 08/16/16 status was more clear. Seroquel was stopped. Blood pressures were stable. He was diuresing well. He underwent diabetes education. The following day, it was reported that he had difficulty getting from the chair to the bed. He had not had this difficulty prior to this. He had mild left-sided weakness. A CT scan of the brain without contrast was performed. Thrombocytopenia was recovering. He was seen by Dr. Parrish López regarding left hemipareses. CT scan of the brain has been reviewed. No clear abnormality was seen. Creatinine level was 1.76. He did have decreased nasolabial fold on the right as well as bilateral lower extremity weakness, left worse than right with left upper extremity pronator drift as well as mild tongue deviation to the left. Atorvastatin was increased. Fasting lipid panel was requested. Aspirin was continued. An MRI of the brain was requested. He had no chest pain or shortness of breath. He remained afebrile. When catheter was removed, Bumex was held. Left upper extremity strength was grossly normal. He was now able to ambulate. He was evaluated by Occupational Therapy. On the , an MRI of the brain without contrast was performed. There was a small acute infarction in the head of the left caudate nucleus. He had no chest pain or shortness of breath. His lungs were clear. Incisions looked okay. Warfarin was started. Thrombocytopenia was resolving. Physical Therapy evaluated the patient. Aspirin and Lipitor were continued. Levemir was decreased. On 08/02/2016, his lungs were clear. The patient reported that he felt fine. He had no chest pain, presyncope, palpitations, or shortness of breath. Low-dose Coreg was added. Statin agent was continued. Acute kidney injury had resolved. We will avoid NANCI inhibitor. His symptom of weakness was improving. We would avoid anticoagulation. INR level was 1.5. The following day, he said he did not sleep well the previous evening. HALIMA hose were in place. He was in a sinus rhythm with frequent PACs. He had 2 pauses during the night. The patient was asymptomatic. Coreg was placed on hold. He was going to be evaluated for possible permanent pacemaker placement. He was seen in consultation by Dr. Peterson Majano regarding sinus node dysfunction and episodes of ventricular asystole, sinus bradycardia, and sinus pauses. He has had multiple episodes of bradycardia, sinus pauses, and then pauses during atrial fibrillation. He had some weak spells during the episode that occurred around midnight. Other episodes occurred around 4 a.m. He, otherwise, had no focal complaints at this time. He felt we should proceed with implantation of a dual- chamber pacemaker. Later that day, the patient was taken to the cardiac laboratory where he underwent the above-mentioned procedure by Dr. Peterson Majano. He tolerated this well. There were no complications. Discharge planning was performed. On 08/04/2016, his lungs were clear. His sternum was clean, dry, and intact. He appeared comfortable. He had no chest pain or shortness of breath. Levemir was decreased. He did have some postop discomfort. Discharge instructions were given. Due to his improved and stable condition, he was discharged to [facility] with the above-stated instructions. Information collected by: Sosa Tellez I submit the above information as my discharge summary. TG/ANNA Cristina Yang M.D. Discharge Summary [address] [address] NAME: GUADALUPE GARCIA : 36 STATUS : DIS IN PAT#: [id number] AGE: 75 ADM/REG DATE : 07/27/16 MR#: [id number] REPORT SERV DATE: 08/17/16 DICTATED BY: CRISTINA YANG DATE: 08/16/16 REPORT STATUS : Draft TRANSCRIBED BY: ANNA DATE: 08/16/16 / [id number] CC: Geovanna Luo M.D. Chun C. Huang, MD Nathan Chamberlain, M.D. Vimal Ramjee, MD Gregory Keith Bruce, M.D. Ronald Jarl, M.D. [facility]
[~2016-07-27 06:57] MED LIST changes: +FLONASE NAS; +SUCR PO; +ZYRTEC ALLGY10 MG PO
[2016-07-27 07:23] LABS: BASOPHILS 0.4 %; BASOPHILS ABSOLUTE 0.02 10/3/uL (0.0-0.16); EOSINOPHILS 6.8 %; EOSINOPHILS ABSOLUTE 0.31 10/3/uL (0.0-0.53); HEMATOCRIT 39.1 % (40.0-51.0); HEMOGLOBIN 13.3 g/dL (13.6-17.8); IMMATURE GRANULOCYTES 0.2 %; IMMATURE GRANULOCYTES ABSOLUTE 0.01 10/3/uL (0.0-0.11); LYMPHOCYTES ABSOLUTE 1.68 10/3/uL (0.67-4.30); MEAN CORPUSCULAR HEMOGLOB 32.6 pg (26.0-34.0); MEAN CORPUSCULAR VOLUME 95.8 fL (80-100); MEAN PLATELET VOLUME 9.1 fL (9.2-13.0); MONOCYTES 6.2 %; MONOCYTES ABSOLUTE 0.28 10/3/uL (0.21-1.20); NEUTROPHILS 49.4 %; NEUTROPHILS ABSOLUTE 2.24 10/3/uL (2.02-8.40); PLATELET COUNT 114 10/3/uL (150-400); RED CELL COUNT 4.08 10/6/uL (4.7-6.1)
[2016-07-27 07:25] LABS: MANUAL DIFF NO %; WHITE BLOOD CELLS 4.5 10/3/uL (4.5-10.5)
[2016-07-27 09:41] LABS: INTERNATIONAL NORMAL RATI 1.3 UNITS (-); PROTIME (NOT ORD) 15.9 SEC (12.0-14.5)
[2016-07-27 15:45] LABS: BE (BASE EXCESS) -4.6 MEQ/L (0 +/- 2.5); CARBOXYHEMOGLOBIN 0.6 % (0-3); HCO3 (ACTUAL BICARBONATE) 21.5 MEQ/L (23-27); HEMOBLOGIN CONTENT 8.4 G/DL (14-18); INSTRUMENT SERIAL # 11843; MODE SIMV; OPERATOR ID 35188; PCO2 (CO2 TENSION) 45 MMHG (35-45); PO2 (O2 TENSION) 225 MMHG (79-93); SAMPLE Arterial; TIDAL VOLUME 700 ML
[2016-07-27 16:04] LABS: INTERNATIONAL NORMAL RATI 2.4 UNITS (-)
[2016-07-27 16:05] LABS: BUN (BLOOD UREA NITROGEN) 19 MG/DL (6-23); CALCIUM, SERUM 7.5 MG/DL (8.5-10.4); CHLORIDE, SERUM 115 MMOL/L (96-112); CO2 (CARBON DIOXIDE) 23 MMOL/L (24-34); CREATININE 1.37 MG/DL (0.70-1.30); GFR AFRICAN AMERICAN 57 ML/MIN (>=60); GFR NON AFRICAN AMERICAN 49 ML/MIN (>=60); PARTIAL THROMBO TIME 52.9 SEC (22.5-37.2); POTASSIUM, SERUM 3.9 MMOL/L (3.5-5.3); SODIUM, SERUM 148 MMOL/L (135-148)
[2016-07-27 16:08] LABS: GLUCOSE, SERUM 154 MG/DL (60-99)
[2016-07-27 16:12] LABS: PROTIME (NOT ORD) 25.8 SEC (12.0-14.5)
[2016-07-27 16:19] LABS: HEMATOCRIT 23.4 % (40.0-51.0); PLATELET COUNT 43 10/3/uL (150-400)
[2016-07-27 17:26] LABS: HEMATOCRIT 24.4 % (40.0-51.0); HEMOGLOBIN 8.5 g/dL (13.6-17.8)
[2016-07-27 20:53] LABS: BE (BASE EXCESS) -5.8 MEQ/L (0 +/- 2.5); CARBOXYHEMOGLOBIN 0.9 % (0-3); DEVICE NC; HCO3 (ACTUAL BICARBONATE) 19.2 MEQ/L (23-27); HEMOBLOGIN CONTENT 6.9 G/DL (14-18); INSTRUMENT SERIAL # 11843; METHEMOGLOBIN 0.8 % (0-3); O2 CONTENT 9.5 VOL% (18-24); OPERATOR ID 32193; PCO2 (CO2 TENSION) 36 MMHG (35-45); PO2 (O2 TENSION) 116 MMHG (79-93); SAMPLE Arterial; pH 7.35 (7.37-7.43)
[2016-07-27 22:53] LABS: HEMATOCRIT 18.1 % (40.0-51.0); HEMOGLOBIN 6.3 g/dL (13.6-17.8)
[2016-07-27 23:00] LABS: POTASSIUM, SERUM 3.8 MMOL/L (3.5-5.3)
[2016-07-28 04:31] LABS: BASOPHILS 0 %; EOSINOPHILS 0 %; HEMOGLOBIN 7.2 g/dL (13.6-17.8); IMMATURE GRANULOCYTES 0.2 %; IMMATURE GRANULOCYTES ABSOLUTE 0.03 10/3/uL (0.0-0.11); LYMPHOCYTES 6.7 %; LYMPHOCYTES ABSOLUTE 0.86 10/3/uL (0.67-4.30); MEAN CORPUSCULAR HEMOGLOB 32.4 pg (26.0-34.0); MEAN PLATELET VOLUME 9.9 fL (9.2-13.0); MONOCYTES 4.8 %; MONOCYTES ABSOLUTE 0.62 10/3/uL (0.21-1.20); NEUTROPHILS 88.3 %; NEUTROPHILS ABSOLUTE 11.42 10/3/uL (2.02-8.40); NUCLEATED RED BLOOD CELLS 0.2 /100WBC (0-0); RBC DISTRIBUTION WIDTH 15.7 % (12.0-16.0)
[2016-07-28 04:35] LABS: HEMATOCRIT 20.6 % (40.0-51.0); MANUAL DIFF NO %; MEAN CORPUSCULAR VOLUME 92.8 fL (80-100); PLATELET COUNT 94 10/3/uL (150-400); RED CELL COUNT 2.22 10/6/uL (4.7-6.1); WHITE BLOOD CELLS 12.9 10/3/uL (4.5-10.5)
[2016-07-28 04:41] LABS: INTERNATIONAL NORMAL RATI 1.7 UNITS (-)
[2016-07-28 04:46] LABS: CHLORIDE, SERUM 113 MMOL/L (96-112); POTASSIUM, SERUM 3.5 MMOL/L (3.5-5.3); PROTIME (NOT ORD) 19.8 SEC (12.0-14.5); SODIUM, SERUM 146 MMOL/L (135-148)
[2016-07-28 04:47] LABS: BUN (BLOOD UREA NITROGEN) 24 MG/DL (6-23); CALCIUM, SERUM 8.5 MG/DL (8.5-10.4); CO2 (CARBON DIOXIDE) 12 MMOL/L (24-34); CREATININE 2.23 MG/DL (0.70-1.30); GFR AFRICAN AMERICAN 32 ML/MIN (>=60); GFR NON AFRICAN AMERICAN 27 ML/MIN (>=60); GLUCOSE, SERUM 259 MG/DL (60-99)
[2016-07-28 05:26] LABS: BE (BASE EXCESS) -16.6 MEQ/L (0 +/- 2.5); CARBOXYHEMOGLOBIN 0.4 % (0-3); DEVICE NC; HCO3 (ACTUAL BICARBONATE) 10.2 MEQ/L (23-27); HEMOBLOGIN CONTENT 7.5 G/DL (14-18); INSTRUMENT SERIAL # 11843; METHEMOGLOBIN 0.8 % (0-3); O2 CONTENT 9.8 VOL% (18-24); OPERATOR ID 32193; PCO2 (CO2 TENSION) 27 MMHG (35-45); PO2 (O2 TENSION) 84 MMHG (79-93); SAMPLE Arterial; pH 7.19 (7.37-7.43)
[2016-07-28 07:04] LABS: CARBOXYHEMOGLOBIN 0.8 % (0-3); DEVICE NC; HCO3 (ACTUAL BICARBONATE) 20.1 MEQ/L (23-27); HEMOBLOGIN CONTENT 7.2 G/DL (14-18); INSTRUMENT SERIAL # 11843; METHEMOGLOBIN 0.8 % (0-3); O2 CONTENT 9.7 VOL% (18-24); OPERATOR ID 32193; PCO2 (CO2 TENSION) 37 MMHG (35-45); PO2 (O2 TENSION) 90 MMHG (79-93); SAMPLE Arterial; pH 7.36 (7.37-7.43)
[2016-07-28 10:05] LABS: BE (BASE EXCESS) -2.8 MEQ/L (0 +/- 2.5); CARBOXYHEMOGLOBIN 0.4 % (0-3); DEVICE NC; HCO3 (ACTUAL BICARBONATE) 21.8 MEQ/L (23-27); HEMOBLOGIN CONTENT 7.1 G/DL (14-18); INSTRUMENT SERIAL # 11843; METHEMOGLOBIN 0.7 % (0-3); O2 CONTENT 9.3 VOL% (18-24); OPERATOR ID 18642; PCO2 (CO2 TENSION) 37 MMHG (35-45); PO2 (O2 TENSION) 74 MMHG (79-93); SAMPLE Arterial; pH 7.39 (7.37-7.43)
[2016-07-28 10:26] LABS: BUN (BLOOD UREA NITROGEN) 26 MG/DL (6-23); CALCIUM, SERUM 8.1 MG/DL (8.5-10.4); CHLORIDE, SERUM 111 MMOL/L (96-112); CREATININE 1.92 MG/DL (0.70-1.30); GFR AFRICAN AMERICAN 38 ML/MIN (>=60); GFR NON AFRICAN AMERICAN 33 ML/MIN (>=60); SODIUM, SERUM 147 MMOL/L (135-148)
[2016-07-28 10:27] LABS: CO2 (CARBON DIOXIDE) 25 MMOL/L (24-34); GLUCOSE, SERUM 113 MG/DL (60-99)
[2016-07-28 17:03] LABS: HEMOGLOBIN 8.3 g/dL (13.6-17.8)
[2016-07-28 17:05] LABS: HEMATOCRIT 23.4 % (40.0-51.0)
[2016-07-28 17:08] LABS: POTASSIUM, SERUM 5.5 MMOL/L (3.5-5.3)
[2016-07-28 21:15] LABS: BUN (BLOOD UREA NITROGEN) 29 MG/DL (6-23); CALCIUM, SERUM 8.3 MG/DL (8.5-10.4); CHLORIDE, SERUM 109 MMOL/L (96-112); CO2 (CARBON DIOXIDE) 23 MMOL/L (24-34); CREATININE 2.07 MG/DL (0.70-1.30); GFR AFRICAN AMERICAN 35 ML/MIN (>=60); GFR NON AFRICAN AMERICAN 30 ML/MIN (>=60); GLUCOSE, SERUM 162 MG/DL (60-99); PHOSPHORUS, SERUM 3.5 MG/DL (2.5-4.5); POTASSIUM, SERUM 5.7 MMOL/L (3.5-5.3); SODIUM, SERUM 143 MMOL/L (135-148)
[2016-07-29 03:16] LABS: BASOPHILS 0 %; EOSINOPHILS 0 %; HEMATOCRIT 21.9 % (40.0-51.0); HEMOGLOBIN 7.8 g/dL (13.6-17.8); IMMATURE GRANULOCYTES 0.3 %; IMMATURE GRANULOCYTES ABSOLUTE 0.04 10/3/uL (0.0-0.11); LYMPHOCYTES 8.3 %; LYMPHOCYTES ABSOLUTE 0.97 10/3/uL (0.67-4.30); MEAN CORPUS HGB CONC 35.6 g/dL (32.0-36.0); MEAN CORPUSCULAR HEMOGLOB 32.2 pg (26.0-34.0); MEAN CORPUSCULAR VOLUME 90.5 fL (80-100); MEAN PLATELET VOLUME 10.2 fL (9.2-13.0); MONOCYTES 6.6 %; MONOCYTES ABSOLUTE 0.78 10/3/uL (0.21-1.20); NEUTROPHILS 84.8 %; NEUTROPHILS ABSOLUTE 9.96 10/3/uL (2.02-8.40); RBC DISTRIBUTION WIDTH 16.8 % (12.0-16.0); RED CELL COUNT 2.42 10/6/uL (4.7-6.1); WHITE BLOOD CELLS 11.8 10/3/uL (4.5-10.5)
[2016-07-29 03:17] LABS: MANUAL DIFF NO %; PLATELET COUNT 59 10/3/uL (150-400)
[2016-07-29 03:30] LABS: ALBUMIN 3.2 G/DL (3.5-5.0); CALCIUM, SERUM 8.5 MG/DL (8.5-10.4); CHLORIDE, SERUM 108 MMOL/L (96-112); CO2 (CARBON DIOXIDE) 27 MMOL/L (24-34); CREATININE 2.06 MG/DL (0.70-1.30); GFR AFRICAN AMERICAN 35 ML/MIN (>=60); GFR NON AFRICAN AMERICAN 30 ML/MIN (>=60); PHOSPHORUS, SERUM 3.8 MG/DL (2.5-4.5); POTASSIUM, SERUM 5.5 MMOL/L (3.5-5.3); SODIUM, SERUM 143 MMOL/L (135-148)
[2016-07-29 03:31] LABS: BUN (BLOOD UREA NITROGEN) 35 MG/DL (6-23); GLUCOSE, SERUM 76 MG/DL (60-99)
[2016-07-29 03:41] LABS: ANISOCYTOSIS 1+ (5-10/OIF) (0-5/OIF); PLATELET ESTIMATE DEC (ADEQUATE)
[2016-07-29 14:52] LABS: BUN (BLOOD UREA NITROGEN) 43 MG/DL (6-23); CALCIUM, SERUM 8.3 MG/DL (8.5-10.4); CHLORIDE, SERUM 104 MMOL/L (96-112); CO2 (CARBON DIOXIDE) 25 MMOL/L (24-34); CREATININE 2.19 MG/DL (0.70-1.30); GFR AFRICAN AMERICAN 32 ML/MIN (>=60); GFR NON AFRICAN AMERICAN 28 ML/MIN (>=60); GLUCOSE, SERUM 159 MG/DL (60-99); POTASSIUM, SERUM 5.7 MMOL/L (3.5-5.3); SODIUM, SERUM 138 MMOL/L (135-148)
[2016-07-29 19:38] LABS: BE (BASE EXCESS) -1.1 MEQ/L (0 +/- 2.5); HCO3 (ACTUAL BICARBONATE) 22.6 MEQ/L (23-27); INSTRUMENT SERIAL # 11843; PCO2 (CO2 TENSION) 34 MMHG (35-45); PO2 (O2 TENSION) 54 MMHG (79-93); pH 7.45 (7.37-7.43)
[2016-07-29 19:39] LABS: CARBOXYHEMOGLOBIN 0.7 % (0-3); DEVICE NC; HEMOBLOGIN CONTENT 8.6 G/DL (14-18); METHEMOGLOBIN 0.7 % (0-3); O2 CONTENT 10.4 VOL% (18-24); OPERATOR ID 32193; SAMPLE Arterial
[2016-07-29 19:53] LABS: CHLORIDE, SERUM 102 MMOL/L (96-112); CO2 (CARBON DIOXIDE) 24 MMOL/L (24-34); CREATININE 2.23 MG/DL (0.70-1.30); GFR AFRICAN AMERICAN 32 ML/MIN (>=60); GFR NON AFRICAN AMERICAN 27 ML/MIN (>=60); SODIUM, SERUM 139 MMOL/L (135-148)
[2016-07-29 19:56] LABS: BUN (BLOOD UREA NITROGEN) 48 MG/DL (6-23); GLUCOSE, SERUM 127 MG/DL (60-99); POTASSIUM, SERUM 4.5 MMOL/L (3.5-5.3)
[2016-07-30 06:46] LABS: BASOPHILS 0 %; EOSINOPHILS 0 %; HEMOGLOBIN 7.3 g/dL (13.6-17.8); IMMATURE GRANULOCYTES 0.3 %; IMMATURE GRANULOCYTES ABSOLUTE 0.03 10/3/uL (0.0-0.11); LYMPHOCYTES 12.9 %; LYMPHOCYTES ABSOLUTE 1.11 10/3/uL (0.67-4.30); MEAN CORPUS HGB CONC 35.6 g/dL (32.0-36.0); MEAN CORPUSCULAR HEMOGLOB 32.9 pg (26.0-34.0); MEAN CORPUSCULAR VOLUME 92.3 fL (80-100); MEAN PLATELET VOLUME 10.4 fL (9.2-13.0); MONOCYTES 5.8 %; NEUTROPHILS ABSOLUTE 6.98 10/3/uL (2.02-8.40); PLATELET COUNT 55 10/3/uL (150-400); RBC DISTRIBUTION WIDTH 16.4 % (12.0-16.0); RED CELL COUNT 2.22 10/6/uL (4.7-6.1); WHITE BLOOD CELLS 8.6 10/3/uL (4.5-10.5)
[2016-07-30 06:48] LABS: HEMATOCRIT 20.5 % (40.0-51.0); MANUAL DIFF NO %
[2016-07-30 06:54] LABS: BUN (BLOOD UREA NITROGEN) 48 MG/DL (6-23); CALCIUM, SERUM 7.7 MG/DL (8.5-10.4); CHLORIDE, SERUM 103 MMOL/L (96-112); CO2 (CARBON DIOXIDE) 24 MMOL/L (24-34); CREATININE 2.05 MG/DL (0.70-1.30); GFR AFRICAN AMERICAN 35 ML/MIN (>=60); GFR NON AFRICAN AMERICAN 30 ML/MIN (>=60); GLUCOSE, SERUM 172 MG/DL (60-99); POTASSIUM, SERUM 5.1 MMOL/L (3.5-5.3); SODIUM, SERUM 138 MMOL/L (135-148)
[2016-07-30 07:48] LABS: PLATELET ESTIMATE DEC (ADEQUATE)
[2016-07-30 07:49] LABS: RBC MORPHOLOGY NORM (NORMAL)
[2016-07-31 06:23] LABS: BASOPHILS 0 %; EOSINOPHILS 0.4 %; EOSINOPHILS ABSOLUTE 0.03 10/3/uL (0.0-0.53); HEMOGLOBIN 7.5 g/dL (13.6-17.8); IMMATURE GRANULOCYTES 0.1 %; IMMATURE GRANULOCYTES ABSOLUTE 0.01 10/3/uL (0.0-0.11); LYMPHOCYTES 14.9 %; LYMPHOCYTES ABSOLUTE 1.22 10/3/uL (0.67-4.30); MEAN CORPUS HGB CONC 34.1 g/dL (32.0-36.0); MEAN CORPUSCULAR HEMOGLOB 31.9 pg (26.0-34.0); MEAN CORPUSCULAR VOLUME 93.6 fL (80-100); MEAN PLATELET VOLUME 10.2 fL (9.2-13.0); MONOCYTES 7.1 %; MONOCYTES ABSOLUTE 0.58 10/3/uL (0.21-1.20); NEUTROPHILS 77.5 %; NEUTROPHILS ABSOLUTE 6.33 10/3/uL (2.02-8.40); PLATELET COUNT 63 10/3/uL (150-400); RBC DISTRIBUTION WIDTH 16.2 % (12.0-16.0); RED CELL COUNT 2.35 10/6/uL (4.7-6.1); WHITE BLOOD CELLS 8.2 10/3/uL (4.5-10.5)
[2016-07-31 06:24] LABS: MANUAL DIFF NO %
[2016-07-31 06:33] LABS: ALBUMIN 2.9 G/DL (3.5-5.0); CALCIUM, SERUM 7.9 MG/DL (8.5-10.4); CHLORIDE, SERUM 101 MMOL/L (96-112); CREATININE 1.76 MG/DL (0.70-1.30); GFR AFRICAN AMERICAN 42 ML/MIN (>=60); GFR NON AFRICAN AMERICAN 36 ML/MIN (>=60); PHOSPHORUS, SERUM 3.4 MG/DL (2.5-4.5); POTASSIUM, SERUM 4.2 MMOL/L (3.5-5.3); SODIUM, SERUM 138 MMOL/L (135-148)
[2016-07-31 06:34] LABS: BUN (BLOOD UREA NITROGEN) 55 MG/DL (6-23); CO2 (CARBON DIOXIDE) 29 MMOL/L (24-34); GLUCOSE, SERUM 97 MG/DL (60-99)
[2016-07-31 06:54] LABS: PLATELET ESTIMATE DEC (ADEQUATE); RBC MORPHOLOGY NORM (NORMAL)
[2016-07-31 13:18] LABS: CHOL/HDL RATIO(NOT ORDER) 2.9 (0-5); CHOLESTEROL 63 MG/DL (< 200); HDL CHOLESTEROL 22 MG/DL (> 39); LDL CHOLESTEROL 20 MG/DL (< 130); NON-HDL CHOLESTEROL 41 MG/DL (< 160); TRIGLYCERIDE 105 MG/DL (< 150)
[2016-08-01 06:54] LABS: BASOPHILS 0 %; EOSINOPHILS 1.4 %; EOSINOPHILS ABSOLUTE 0.11 10/3/uL (0.0-0.53); HEMATOCRIT 22.4 % (40.0-51.0); HEMOGLOBIN 7.5 g/dL (13.6-17.8); IMMATURE GRANULOCYTES 0.3 %; IMMATURE GRANULOCYTES ABSOLUTE 0.02 10/3/uL (0.0-0.11); LYMPHOCYTES 16.2 %; LYMPHOCYTES ABSOLUTE 1.27 10/3/uL (0.67-4.30); MEAN CORPUS HGB CONC 33.5 g/dL (32.0-36.0); MEAN CORPUSCULAR HEMOGLOB 31.6 pg (26.0-34.0); MEAN CORPUSCULAR VOLUME 94.5 fL (80-100); MEAN PLATELET VOLUME 9.7 fL (9.2-13.0); MONOCYTES 8.9 %; NEUTROPHILS 73.2 %; NEUTROPHILS ABSOLUTE 5.73 10/3/uL (2.02-8.40); PLATELET COUNT 73 10/3/uL (150-400); RBC DISTRIBUTION WIDTH 16.2 % (12.0-16.0); RED CELL COUNT 2.37 10/6/uL (4.7-6.1); WHITE BLOOD CELLS 7.8 10/3/uL (4.5-10.5)
[2016-08-01 06:55] LABS: MANUAL DIFF NO %
[2016-08-01 07:17] LABS: ANISOCYTOSIS 1+ (5-10/OIF) (0-5/OIF); PLATELET ESTIMATE DEC (ADEQUATE); POLYCHROMASIA 1+ (2-5/OIF) (0-1/OIF)
[2016-08-01 07:18] LABS: A/G RATIO 1.1 (0.7-1.9); ALBUMIN 2.6 G/DL (3.5-5.0); CALCIUM, SERUM 7.6 MG/DL (8.5-10.4); CHLORIDE, SERUM 100 MMOL/L (96-112); CHOL/HDL RATIO(NOT ORDER) 3.2 (0-5); CHOLESTEROL 71 MG/DL (< 200); CO2 (CARBON DIOXIDE) 28 MMOL/L (24-34); CREATININE 1.53 MG/DL (0.70-1.30); GFR AFRICAN AMERICAN 50 ML/MIN (>=60); GFR NON AFRICAN AMERICAN 43 ML/MIN (>=60); GLOBULIN 2.4 G/DL (2.5-4.1); GLUCOSE, SERUM 97 MG/DL (60-99); HDL CHOLESTEROL 22 MG/DL (> 39); LDL CHOLESTEROL 31 MG/DL (< 130); NON-HDL CHOLESTEROL 49 MG/DL (< 160); PHOSPHORUS, SERUM 3.4 MG/DL (2.5-4.5); POTASSIUM, SERUM 3.9 MMOL/L (3.5-5.3); SGOT(AST) 33 U/L (5-40); SGPT(ALT) 16 U/L (5-65); SODIUM, SERUM 137 MMOL/L (135-148); TRIGLYCERIDE 94 MG/DL (< 150)
[2016-08-01 07:20] LABS: ALKALINE PHOSPHATASE 63 U/L (45-117); BUN (BLOOD UREA NITROGEN) 49 MG/DL (6-23); TOTAL BILIRUBIN 1.5 MG/DL (0-1.2)
[2016-08-01 08:55] LABS: INTERNATIONAL NORMAL RATI 1.5 UNITS (-); PROTIME (NOT ORD) 18.3 SEC (12.0-14.5)
[2016-08-02 05:26] LABS: BASOPHILS 0 %; EOSINOPHILS 2.7 %; EOSINOPHILS ABSOLUTE 0.18 10/3/uL (0.0-0.53); HEMATOCRIT 21.3 % (40.0-51.0); HEMOGLOBIN 7.1 g/dL (13.6-17.8); IMMATURE GRANULOCYTES 0.5 %; IMMATURE GRANULOCYTES ABSOLUTE 0.03 10/3/uL (0.0-0.11); LYMPHOCYTES 16.2 %; LYMPHOCYTES ABSOLUTE 1.08 10/3/uL (0.67-4.30); MEAN CORPUS HGB CONC 33.3 g/dL (32.0-36.0); MEAN CORPUSCULAR HEMOGLOB 31.6 pg (26.0-34.0); MEAN CORPUSCULAR VOLUME 94.7 fL (80-100); MEAN PLATELET VOLUME 9.7 fL (9.2-13.0); MONOCYTES 8.9 %; MONOCYTES ABSOLUTE 0.59 10/3/uL (0.21-1.20); NEUTROPHILS 71.7 %; NEUTROPHILS ABSOLUTE 4.77 10/3/uL (2.02-8.40); PLATELET COUNT 81 10/3/uL (150-400); RBC DISTRIBUTION WIDTH 16.1 % (12.0-16.0); RED CELL COUNT 2.25 10/6/uL (4.7-6.1); WHITE BLOOD CELLS 6.7 10/3/uL (4.5-10.5)
[2016-08-02 05:27] LABS: MANUAL DIFF NO %
[2016-08-02 05:31] LABS: INTERNATIONAL NORMAL RATI 1.5 UNITS (-); PROTIME (NOT ORD) 18.1 SEC (12.0-14.5)
[2016-08-02 05:39] LABS: CALCIUM, SERUM 7.4 MG/DL (8.5-10.4); CHLORIDE, SERUM 104 MMOL/L (96-112); CO2 (CARBON DIOXIDE) 29 MMOL/L (24-34); CREATININE 1.36 MG/DL (0.70-1.30); GFR AFRICAN AMERICAN 58 ML/MIN (>=60); GFR NON AFRICAN AMERICAN 50 ML/MIN (>=60); GLUCOSE, SERUM 115 MG/DL (60-99); POTASSIUM, SERUM 3.9 MMOL/L (3.5-5.3); SODIUM, SERUM 139 MMOL/L (135-148)
[2016-08-02 05:42] LABS: BUN (BLOOD UREA NITROGEN) 41 MG/DL (6-23)
[2016-08-03 07:05] LABS: CALCIUM, SERUM 7.3 MG/DL (8.5-10.4); CHLORIDE, SERUM 102 MMOL/L (96-112); CO2 (CARBON DIOXIDE) 29 MMOL/L (24-34); CREATININE 1.54 MG/DL (0.70-1.30); GFR AFRICAN AMERICAN 50 ML/MIN (>=60); GFR NON AFRICAN AMERICAN 43 ML/MIN (>=60); GLUCOSE, SERUM 116 MG/DL (60-99); POTASSIUM, SERUM 4.2 MMOL/L (3.5-5.3); SODIUM, SERUM 138 MMOL/L (135-148)
[2016-08-03 07:06] LABS: BUN (BLOOD UREA NITROGEN) 37 MG/DL (6-23)
[2016-08-04 06:31] LABS: BASOPHILS 0 %; EOSINOPHILS 2.8 %; EOSINOPHILS ABSOLUTE 0.18 10/3/uL (0.0-0.53); HEMATOCRIT 21.6 % (40.0-51.0); HEMOGLOBIN 7.1 g/dL (13.6-17.8); IMMATURE GRANULOCYTES 0.5 %; IMMATURE GRANULOCYTES ABSOLUTE 0.03 10/3/uL (0.0-0.11); LYMPHOCYTES 13.9 %; LYMPHOCYTES ABSOLUTE 0.88 10/3/uL (0.67-4.30); MEAN CORPUS HGB CONC 32.9 g/dL (32.0-36.0); MEAN CORPUSCULAR HEMOGLOB 31.4 pg (26.0-34.0); MEAN CORPUSCULAR VOLUME 95.6 fL (80-100); MEAN PLATELET VOLUME 9.9 fL (9.2-13.0); MONOCYTES 6.6 %; MONOCYTES ABSOLUTE 0.42 10/3/uL (0.21-1.20); NEUTROPHILS 76.2 %; NEUTROPHILS ABSOLUTE 4.82 10/3/uL (2.02-8.40); PLATELET COUNT 105 10/3/uL (150-400); RBC DISTRIBUTION WIDTH 15.9 % (12.0-16.0); RED CELL COUNT 2.26 10/6/uL (4.7-6.1); WHITE BLOOD CELLS 6.3 10/3/uL (4.5-10.5)
[2016-08-04 06:33] LABS: MANUAL DIFF NO %
[2016-08-04 06:42] LABS: BUN (BLOOD UREA NITROGEN) 36 MG/DL (6-23); CALCIUM, SERUM 7.3 MG/DL (8.5-10.4); CHLORIDE, SERUM 104 MMOL/L (96-112); CO2 (CARBON DIOXIDE) 27 MMOL/L (24-34); CREATININE 1.49 MG/DL (0.70-1.30); GFR AFRICAN AMERICAN 52 ML/MIN (>=60); GFR NON AFRICAN AMERICAN 45 ML/MIN (>=60); GLUCOSE, SERUM 111 MG/DL (60-99); POTASSIUM, SERUM 4.1 MMOL/L (3.5-5.3); SODIUM, SERUM 139 MMOL/L (135-148)
[2016-10-20] MEDS ORDERED: VITC500 PO (20:39)
[2016-10-20] MEDS ORDERED: EZFE 200200 MG PO (20:39)
[2016-10-20] MEDS ORDERED: PROTONIX PO (20:40)
[2016-10-20] MEDS ORDERED: HALF81 PO (20:40)
[2016-10-20] MEDS ORDERED: CORDARONE PO (20:41)
[2016-10-20] MEDS ORDERED: ZYRTEC ALLGY10 MG PO (20:41)
[2016-10-20] MEDS ORDERED: VITAMIN D31000 UNIT PO (20:42)
[2016-10-20] MEDS ORDERED: L20 PO (20:42)
[2016-10-20] MEDS ORDERED: ZOFRAN4 PO (20:42)
[2016-10-20] MEDS ORDERED: CRESTOR10 PO (20:42)
[2016-10-20] MEDS ORDERED: COUMADIN4 MG PO (20:43)
[2016-10-26] MEDS ORDERED: CIP5 PO (09:01)
[2016-11-19] MEDS ORDERED: CIP5 PO (16:15)
== END 2016-08-04 14:05 | DRG 219 ==
LOC: SDC/OF 06:57 → CVICU 14:31 → 5NO 07-30 15:34
PROVIDERS: Internal Medicine; Nurse Practitioner Family; Thoracic Surgery (Cardiothoracic Vascular Surgery)
DX: I25.10 Atherosclerotic heart disease of native coronary artery without angina pectoris (principal); N17.0 Acute kidney failure with tubular necrosis; I63.9 Cerebral infarction, unspecified; I47.2 Ventricular tachycardia; N18.3 Chronic kidney disease, stage 3 (moderate); I46.9 Cardiac arrest, cause unspecified; D62 Acute posthemorrhagic anemia; I97.820 Postprocedural cerebrovascular infarction following cardiac surgery; G81.94 Hemiplegia, unspecified affecting left nondominant side; E78.5 Hyperlipidemia, unspecified; G47.33 Obstructive sleep apnea (adult) (pediatric); N99.0 Postprocedural (acute) (chronic) kidney failure; I35.0 Nonrheumatic aortic (valve) stenosis; I48.0 Paroxysmal atrial fibrillation; E66.9 Obesity, unspecified; I12.9 Hypertensive chronic kidney disease with stage 1 through stage 4 chronic kidney disease, or unspecified chronic kidney disease; D69.6 Thrombocytopenia, unspecified; Z68.31 Body mass index [BMI] 31.0-31.9, adult
CPT/HCPCS: 31720; 33208; 36415; 36600; 70450; 70551; 71010; 71020; 80048; 80053; 80061; 80069; 81001; 82330; 82533; 82803; 82805; 82947; 82962; 83036; 83540; 83550; 83735; 84132; 84295; 85014; 85018; 85025; 85049; 85347; 85610; 85730; 86850; 86900; 86901; 86920; 87641; 88304; 88305; 93005; 93312; 93320; 93325; 94002; 94640; 94660; 94770; 97116-GP; 97162-GP; 97165-GO; A9270-GY; C1713; C1769; C1785; C1892; C1894; C1898; C2618; G8978-CK-GP; G8979-CL-GP; G8987-CJ-GO; G8988-CI-GO; J0690; J1205; J1644; J2150; J2250; J2370; J2405; J2440; J2597; J2720; J2795; J2930; J3010; J3475; J3480; P9016; P9035; P9045; P9047; P9059